=== PATIENT | female | born 1995 | race Asian ===

== ENCOUNTER 2017-04-01 13:27 | Emergency (ER) | payer MEDICAID ==
[~2017-04-01] VITALS: Ht 167.6 cm; Wt 110.9 kg
[~2017-04-01 13:27] MED LIST: BUPR-86 PO; CITA20TA5 PO; CITA40TA12 PO; HYDR25TA11 PO; LEVE500T53 PO; PHEN100C PO; QUET25TA5 PO; TRAZ100T15 PO; [UNRECOGNIZED DRUG - OTHER] PO
[2017-04-01] MEDS ORDERED: KETOROLAC 30 MG/1 ML IVPush ONE (14:30)
[2017-04-01] MEDS ORDERED: FILTER 0.22 MICRON IV ONE (14:30)
[2017-04-01] MEDS ORDERED: PHENYTOIN SODIUM 1,000 MG in SODIUM CHLORIDE 0.9% 80 ML IV ONE (14:30)
[2017-04-01] MEDS ORDERED: DIPHENHYDRAMINE 50 MG/ML, 1ML IVPush ONE (14:30)
[2017-04-01] MEDS ORDERED: LEVETIRACETAM 500 MG TABLET PO ONE (14:30)
[2017-04-01] MEDS ORDERED: METOCLOPRAMIDE 5 MG/ML, 2ML IVPush ONE (14:30)
[2017-04-01] MEDS ORDERED: SODIUM CHLORIDE 0.9% 1,000ML IVBOLUS ONE (14:30)
[2017-04-01] MEDS ORDERED: SODIUM CHLORIDE FLUSH 10ML SYR IVF ONE ×2 (14:30)
[2017-04-01] MEDS ORDERED: METOCLOPRAMIDE 5 MG/ML, 2ML ONE (14:46)
[2017-04-01] MEDS ORDERED: DIPHENHYDRAMINE 50 MG/ML, 1ML ONE (14:46)
[2017-04-01] MEDS ORDERED: KETOROLAC 30 MG/1 ML ONE (14:46)
[2017-04-01 14:57] LABS: ASPARTATE AMINO TRANSFERASE 21 U/L (15-37); BLOOD UREA NITROGEN 12 mg/dL (7-18)
[2017-04-01 17:33] VITALS: BP 112/67
== END 2017-04-01 17:40 | disposition home or self-care (01) ==
LOC: ED 17:30
DX: R56.9 Unspecified convulsions (principal); Z72.89 Other problems related to lifestyle
CPT/HCPCS: 36415; 80053; 80185; 85025; 96365; 96375; 99284; J1165; J1200; J1885; J2765; J7030

== ENCOUNTER 2017-05-19 05:12 | Emergency (ER) | payer MEDICAID ==
[~2017-05-19] VITALS: Ht 167.6 cm; Wt 109.2 kg
[2017-05-19 05:13] VITALS: BP 141/88
== END 2017-05-19 06:04 | disposition home or self-care (01) ==
LOC: ED 05:38
DX: Z76.0 Encounter for issue of repeat prescription (principal)
CPT/HCPCS: 99283

== ENCOUNTER 2018-03-03 03:12 | Emergency (ER) | payer MEDICAID ==
[~2018-03-03] VITALS: Ht 177.8 cm; Wt 72.0 kg
[~2018-03-03 03:12] MED LIST changes: +LEVE750T37 PO
[2018-03-03] MEDS ORDERED: SODIUM CHLORIDE 0.9% 1,000ML IVBOLUS ONE (03:30)
[2018-03-03 03:40] LABS: BASOPHILS # (AUTO) 0.04 x10^3/uL (0-0.1); BASOPHILS % (AUTO) 1 % (0-1); EOSINOPHILS # (AUTO) 0.15 x10^3/uL (0-0.4); EOSINOPHILS % (AUTO) 2 % (1-7); LYMPHOCYTES # (AUTO) 2.43 x10^3/uL (1-3.4); LYMPHOCYTES % (AUTO) 37 % (22-44); MD NO; MEAN CORPUSCULAR HEMOGLOBIN 28.5 pg (27.0-34.8); MEAN CORPUSCULAR VOLUME 86.3 fL (80-100); MEAN PLATELET VOLUME 6.2 fL (7.4-10.4); MONOCYTES # (AUTO) 0.41 x10^3/uL (0.2-0.8); MONOCYTES % (AUTO) 6 % (2-9); NEUTROPHILS # (AUTO) 3.54 x10^3/uL (1.8-6.8); NEUTROPHILS % (AUTO) 54 % (42-75); PLATELET COUNT 313 x10^3/uL (130-400); RED BLOOD COUNT 4.63 x10^6/uL (3.82-5.3); RED CELL DISTRIBUTION WIDTH 13.5 % (9.6-15.2)
[2018-03-03 03:53] LABS: ALANINE AMINOTRANSFERASE 32 U/L (12-78); ALBUMIN 3.7 g/dL (3.4-5.0); ANION GAP 6 mmol/L (5-15); CALCIUM 8.9 mg/dL (8.5-10.1); CHLORIDE 108 mmol/L (98-107); CREATININE 1.02 mg/dL (0.55-1.02); SALICYLATE LEVEL < 1.7 mg/dL (2.8-20.0)
[2018-03-03] MEDS ORDERED: LORazepam 2 MG/ML, 1ML ONE (03:53)
[2018-03-03 03:58] LABS: ALKALINE PHOSPHATASE 67 U/L (45-117); BILIRUBIN,TOTAL 0.3 mg/dL (0.2-1.0); TOTAL PROTEIN 7.8 g/dL (6.4-8.2)
[2018-03-03 04:00] LABS: ACETAMINOPHEN < 2 mcg/mL (10-30)
[2018-03-03] MEDS ORDERED: KLON (04:04)
[2018-03-03] MEDS ORDERED: KLONOPIN (04:06)
[2018-03-03] MEDS ORDERED: NALOXONE 0.4 MG/ML, 1ML ONE (04:49)
[2018-03-03] MEDS ORDERED: NALOXONE 0.4 MG/ML, 1ML IVPush ONE (05:00)
[2018-03-03] MEDS ORDERED: LEVETIRACETAM 1,000 MG in SODIUM CHLORIDE 0.9% 100 ML IV ONE (05:30)
[2018-03-03 09:03] VITALS: BP 121/81
== END 2018-03-03 09:07 | disposition home or self-care (01) ==
LOC: ED 03:56
DX: G40.909 Epilepsy, unspecified, not intractable, without status epilepticus (principal); F11.10 Opioid abuse, uncomplicated; F19.10 Other psychoactive substance abuse, uncomplicated; Z72.9 Problem related to lifestyle, unspecified
CPT/HCPCS: 36415; 80053; 80307; 80329; 84703; 85025; 93005; 96365; 96375; 99285; J1953; J2310; J7030; G0480

== ENCOUNTER 2018-12-29 17:28 | Inpatient (IN) | payer MEDICAID, OTHER ==
[~2018-12-29] VITALS: Ht 167.6 cm; Wt 100.3 kg
[~2018-12-29 17:28] MED LIST changes: -CITA20TA5 PO; +CITA20TA6 PO; +KLON; +KLONOPIN; +TRAZ-137 PO; -TRAZ100T15 PO
--- NOTE | 2018-12-29 17:52 | NUR ---
SEIZURE PADS IN PLACE
--- NOTE | 2018-12-29 17:53 | NUR ---
PT TENSING UP, LYING ON SIDE. GIVEN ATIVAN. MD AT BEDSIDE. PT RESPONDING WHEN QUESTIONED BY MD. 98 PERCENT PULSE OX
[2018-12-29] MEDS ORDERED: SODIUM CHLORIDE FLUSH 10ML SYR IVF ONE (18:00)
[2018-12-29] MEDS ORDERED: LORazepam 2 MG/ML, 1ML IVPush ONE (18:00)
[2018-12-29 18:18] LABS: BASOPHILS # (AUTO) 0.01 x10^3/uL (0-0.1); BASOPHILS % (AUTO) 0 % (0-1); EOSINOPHILS # (AUTO) 0.02 x10^3/uL (0-0.4); EOSINOPHILS % (AUTO) 0 % (1-7); LYMPHOCYTES # (AUTO) 1.03 x10^3/uL (1-3.4); LYMPHOCYTES % (AUTO) 22 % (22-44); MD NO; MEAN CORPUSCULAR HEMOGLOBIN 30.1 pg (27.0-34.8); MEAN CORPUSCULAR HGB CONC 33.3 g/dL (32.4-35.8); MEAN CORPUSCULAR VOLUME 90.2 fL (80-100); MEAN PLATELET VOLUME 6.5 fL (7.4-10.4); MONOCYTES # (AUTO) 0.38 x10^3/uL (0.2-0.8); MONOCYTES % (AUTO) 8 % (2-9); NEUTROPHILS # (AUTO) 3.21 x10^3/uL (1.8-6.8); NEUTROPHILS % (AUTO) 69 % (42-75); PLATELET COUNT 226 x10^3/uL (130-400); RED BLOOD COUNT 4.08 x10^6/uL (3.82-5.3); RED CELL DISTRIBUTION WIDTH 14.3 % (9.6-15.2)
--- NOTE | 2018-12-29 18:25 | NUR ---
PT SLEEPING. CONTINUE TO MONITOR
[2018-12-29 18:28] LABS: ALANINE AMINOTRANSFERASE 80 U/L (12-78); ALBUMIN 3.5 g/dL (3.4-5.0); ANION GAP 4 mmol/L (5-15); CALCIUM 7.8 mg/dL (8.5-10.1); CHLORIDE 111 mmol/L (98-107); CREATININE 0.86 mg/dL (0.55-1.02)
[2018-12-29 18:33] LABS: ALKALINE PHOSPHATASE 92 U/L (45-117); BILIRUBIN,TOTAL 0.1 mg/dL (0.2-1.0); TOTAL PROTEIN 6.6 g/dL (6.4-8.2)
--- NOTE | 2018-12-29 20:23 | NUR ---
PT SLEEPING. AWOKE HER TO TAKE HER PANTS OFF AND GET HER ON BEDPAN. URINE SAMPLE OBTAINED. PT THEN STATED SHE THOUGHT SHE WAS GOING TO HAVE A SEIZURE. PT THEN HAD WHAT MAY HAVE BEEN A PSEUDO SEIZURE LASTING 20 SECONDS AND OXYGEN SATURATION NORMAL DURING THIS ACTIVITY. PT THEN BACK TO NORMAL.
[2018-12-29 20:46] LABS: AMPHETAMINE SCREEN, URINE Negative (Negative); BARBITURATE SCREEN, URINE Negative (Negative); BENZODIAZEPINE SCREEN, URINE Positive (Negative); CANNABINOID SCREEN, URINE Negative (Negative); COCAINE SCREEN, URINE Negative (Negative); METHADONE SCREEN, URINE Negative (Negative); OPIATE SCREEN, URINE Negative (Negative)
--- NOTE | 2018-12-29 20:58 | NUR ---
REPORT TO SHAHRIAR
[2018-12-29] MEDS ORDERED: SODIUM CHLORIDE FLUSH 10ML SYR IVF PRN (21:00)
[2018-12-29] MEDS ORDERED: PHEN100C PO ×2 (21:04)
[2018-12-29] MEDS ORDERED: CARB200T PO (21:04)
[2018-12-29] MEDS ORDERED: LEVE500T53 PO (21:04)
--- NOTE | 2018-12-29 21:08 | NUR ---
REPORT FROM TYRON. PT RESTING IN ROOM. BED ASSIGNED. AWAITING REPORT.
[2018-12-29 22:10] VITALS: BP 106/70
[2018-12-29] MEDS ORDERED: TRAZ50TA66 PO (22:56)
[2018-12-29] MEDS ORDERED: MECO0.5P PO (22:56)
[2018-12-29] MEDS ORDERED: CHOL2000 PO (22:56)
[2018-12-29] MEDS ORDERED: CITA20TA6 PO (22:56)
[2018-12-29] MEDS ORDERED: ACETAMINOPHEN 325 MG TABLET PO PRN (23:30)
[2018-12-29] MEDS ORDERED: LORazepam 2 MG/ML, 1ML ONE (23:30)
[2018-12-29] MEDS ORDERED: hydrALAzine 20 MG/ML, 1ML IVPush PRN (23:30)
[2018-12-29] MEDS ORDERED: POLYETHYLENE GLYCOL 17 GM PACKET PO PRN (23:30)
[2018-12-29] MEDS: LEVETIRACETAM 1,000 MG in SODIUM CHLORIDE 0.9% 100 ML IV SCH (23:57)
[2018-12-30] MEDS ORDERED: LORazepam 2 MG/ML, 1ML IVPush ONE
[2018-12-30 00:06] VITALS: BP 110/55
[2018-12-30 00:15] VITALS: BP 104/67
[2018-12-30] MEDS: LORazepam 2 MG/ML, 1ML IVPush PRN ×7 (02:05→20:56)
[2018-12-30 06:09] LABS: BASOPHILS # (AUTO) 0.02 x10^3/uL (0-0.1); BASOPHILS % (AUTO) 0 % (0-1); EOSINOPHILS # (AUTO) 0.02 x10^3/uL (0-0.4); EOSINOPHILS % (AUTO) 1 % (1-7); LYMPHOCYTES # (AUTO) 1.48 x10^3/uL (1-3.4); LYMPHOCYTES % (AUTO) 36 % (22-44); MD NO; MEAN CORPUSCULAR HEMOGLOBIN 30.3 pg (27.0-34.8); MEAN CORPUSCULAR HGB CONC 33.9 g/dL (32.4-35.8); MEAN CORPUSCULAR VOLUME 89.4 fL (80-100); MEAN PLATELET VOLUME 6.1 fL (7.4-10.4); MONOCYTES # (AUTO) 0.33 x10^3/uL (0.2-0.8); MONOCYTES % (AUTO) 8 % (2-9); NEUTROPHILS # (AUTO) 2.27 x10^3/uL (1.8-6.8); NEUTROPHILS % (AUTO) 55 % (42-75); PLATELET COUNT 211 x10^3/uL (130-400); RED BLOOD COUNT 3.82 x10^6/uL (3.82-5.3); RED CELL DISTRIBUTION WIDTH 14.7 % (9.6-15.2)
[2018-12-30 06:18] LABS: ANION GAP 4 mmol/L (5-15); CALCIUM 7.8 mg/dL (8.5-10.1); CHLORIDE 112 mmol/L (98-107)
[2018-12-30 06:22] LABS: ALANINE AMINOTRANSFERASE 69 U/L (12-78); ALKALINE PHOSPHATASE 81 U/L (45-117); BILIRUBIN,TOTAL 0.2 mg/dL (0.2-1.0); CREATININE 0.59 mg/dL (0.55-1.02); TOTAL PROTEIN 6.1 g/dL (6.4-8.2)
[2018-12-30] MEDS ORDERED: ACETAMINOPHEN 325 MG TABLET PO PRN (08:00)
[2018-12-30 08:30] VITALS: BP 97/64
[2018-12-30] MEDS: CITALOPRAM 20 MG TABLET PO SCH (09:44)
[2018-12-30] MEDS: PHENYTOIN 100 MG CAPSULE PO SCH (09:44)
[2018-12-30 10:05] VITALS: BP 107/69
[2018-12-30] MEDS: LEVETIRACETAM 1,000 MG in SODIUM CHLORIDE 0.9% 100 ML IV SCH ×2 (12:12→23:30)
[2018-12-30 12:39] VITALS: BP 113/74
[2018-12-30 20:40] VITALS: BP 102/67
[2018-12-30] MEDS ORDERED: CARBAMAZEPINE 100 MG TAB.CHEW PO SCH (21:00)
[2018-12-30] MEDS ORDERED: PHENYTOIN 100 MG CAPSULE PO SCH (21:00)
[2018-12-30] MEDS ORDERED: TRAZODONE 50MG TABLET PO SCH (21:00)
[2018-12-31 03:54] VITALS: BP 99/63
[2018-12-31] MEDS: LORazepam 2 MG/ML, 1ML IVPush PRN (05:32)
[2018-12-31 07:18] VITALS: BP 97/65
[2018-12-31] MEDS ORDERED: SODIUM CHLORIDE 0.9% 1,000 ML IV SCH (08:00)
[2018-12-31] MEDS: LEVETIRACETAM 1,000 MG in SODIUM CHLORIDE 0.9% 100 ML IV SCH (09:27)
[2018-12-31] MEDS: PHENYTOIN 100 MG CAPSULE PO SCH (09:29)
[2018-12-31] MEDS: CITALOPRAM 20 MG TABLET PO SCH (09:30)
[2018-12-31] MEDS ORDERED: CARBAMAZEPINE 200 MG TABLET PO SCH (10:00)
[2018-12-31] MEDS ORDERED: LEVETIRACETAM 500 MG TABLET PO SCH (10:00)
[2018-12-31] MEDS ORDERED: CARB200T PO (11:38)
== END 2018-12-31 14:13 | disposition home or self-care (01) | DRG 101 ==
LOC: EDBD 17:28 → ED 17:45 → 4WST 20:54
PROVIDERS: ADMIT Family Medicine; ATTEND Family Medicine
DX: G40.909 Epilepsy, unspecified, not intractable, without status epilepticus (principal); Z79.899 Other long term (current) drug therapy; G47.00 Insomnia, unspecified; E66.9 Obesity, unspecified; Z68.35 Body mass index [BMI] 35.0-35.9, adult; Z88.0 Allergy status to penicillin; Z88.2 Allergy status to sulfonamides; Z88.8 Allergy status to other drugs, medicaments and biological substances
CPT/HCPCS: 36415; 70450; 80053; 80156; 80177; 80185; 80307; 82550; 83735; 84703; 85025; 93005; 95816; 95819; 96374; 99285; G0378; J1953; J2060; J7030

== ENCOUNTER 2019-01-12 10:50 | Inpatient (IN) | payer MEDICAID, OTHER ==
[~2019-01-12] VITALS: Ht 170.2 cm; Wt 94.9 kg
[~2019-01-12 10:50] MED LIST changes: +CARB200T PO; +CHOL2000 PO; +MECO0.5P PO; +TRAZ50TA66 PO
[2019-01-12] MEDS ORDERED: SODIUM CHLORIDE FLUSH 10ML SYR IVF ONE (11:00)
--- NOTE | 2019-01-12 11:17 | NUR ---
pt bib remsa for 45 minute seizure while at the correction. pt escorted with law enforcement.. per remsa pt was never postictal. pt with hx: pseudoseizures. pt a&ox4. pt placed in room and placed on bp and cont. pulse oximeter. assessment completed. call light in rech. seizure pads placed on bed. law enforcement at bedside.
[2019-01-12 11:35] LABS: BASOPHILS # (AUTO) 0.02 x10^3/uL (0-0.1); BASOPHILS % (AUTO) 0 % (0-1); EOSINOPHILS # (AUTO) 0.05 x10^3/uL (0-0.4); EOSINOPHILS % (AUTO) 1 % (1-7); LYMPHOCYTES # (AUTO) 0.91 x10^3/uL (1-3.4); LYMPHOCYTES % (AUTO) 15 % (22-44); MD NO; MEAN CORPUSCULAR HEMOGLOBIN 30.8 pg (27.0-34.8); MEAN CORPUSCULAR HGB CONC 33.8 g/dL (32.4-35.8); MEAN PLATELET VOLUME 6.5 fL (7.4-10.4); MONOCYTES # (AUTO) 0.33 x10^3/uL (0.2-0.8); MONOCYTES % (AUTO) 6 % (2-9); NEUTROPHILS # (AUTO) 4.61 x10^3/uL (1.8-6.8); NEUTROPHILS % (AUTO) 78 % (42-75); PLATELET COUNT 243 x10^3/uL (130-400); RED BLOOD COUNT 4.16 x10^6/uL (3.82-5.3); RED CELL DISTRIBUTION WIDTH 13.9 % (9.6-15.2)
[2019-01-12 11:45] LABS: ALBUMIN 3.9 g/dL (3.4-5.0); ANION GAP 8 mmol/L (5-15); CALCIUM 8.2 mg/dL (8.5-10.1); CHLORIDE 108 mmol/L (98-107)
[2019-01-12 11:52] LABS: CREATININE 0.89 mg/dL (0.55-1.02)
--- NOTE | 2019-01-12 11:57 | NUR ---
PT RESTING IN BED AT THIS TIME. NO FURTHER SEIZURE ACTIVITY NOTED. LAW ENFORCEMENT AT BEDSIDE
--- NOTE | 2019-01-12 13:15 | NUR ---
report given to chris. pt then will be transferred to floor.
[2019-01-12 13:42] VITALS: BP 102/70
[2019-01-12 13:43] VITALS: BP 102/70
[2019-01-12] MEDS ORDERED: ONDANSETRON 2MG/ML, 2ML IVPush PRN (16:00)
[2019-01-12] MEDS ORDERED: ACETAMINOPHEN 325 MG TABLET PO PRN (16:00)
[2019-01-12] MEDS ORDERED: ONDANSETRON ODT 4 MG PO PRN (16:00)
[2019-01-12] MEDS: LEVETIRACETAM 500 MG TABLET PO SCH ×2 (16:19→22:14)
[2019-01-12] MEDS: LORazepam 2 MG/ML, 1ML IV PRN ×2 (19:20→21:38)
[2019-01-12] MEDS ORDERED: hydrOXYzine 50 MG/ML IM PRN (19:30)
[2019-01-12 19:34] VITALS: BP 97/61
[2019-01-12] MEDS ORDERED: CARBAMAZEPINE 100 MG TAB.CHEW PO SCH (21:00)
[2019-01-12 21:51] VITALS: BP 114/73
[2019-01-13 01:20] VITALS: BP 98/65
[2019-01-13 04:58] LABS: BASOPHILS # (AUTO) 0.03 x10^3/uL (0-0.1); BASOPHILS % (AUTO) 1 % (0-1); EOSINOPHILS # (AUTO) 0.04 x10^3/uL (0-0.4); EOSINOPHILS % (AUTO) 1 % (1-7); LYMPHOCYTES # (AUTO) 1.86 x10^3/uL (1-3.4); LYMPHOCYTES % (AUTO) 37 % (22-44); MD NO; MEAN CORPUSCULAR HEMOGLOBIN 30.8 pg (27.0-34.8); MEAN CORPUSCULAR HGB CONC 33.8 g/dL (32.4-35.8); MEAN CORPUSCULAR VOLUME 91.2 fL (80-100); MEAN PLATELET VOLUME 6.4 fL (7.4-10.4); MONOCYTES # (AUTO) 0.49 x10^3/uL (0.2-0.8); MONOCYTES % (AUTO) 10 % (2-9); NEUTROPHILS # (AUTO) 2.56 x10^3/uL (1.8-6.8); NEUTROPHILS % (AUTO) 51 % (42-75); PLATELET COUNT 233 x10^3/uL (130-400); RED BLOOD COUNT 3.93 x10^6/uL (3.82-5.3); RED CELL DISTRIBUTION WIDTH 14.2 % (9.6-15.2)
[2019-01-13 05:08] LABS: ANION GAP 5 mmol/L (5-15); CALCIUM 7.9 mg/dL (8.5-10.1); CHLORIDE 110 mmol/L (98-107); CREATININE 0.63 mg/dL (0.55-1.02)
[2019-01-13] MEDS ORDERED: CARB100T4 PO (07:45)
[2019-01-13 08:04] VITALS: BP 90/62
[2019-01-13] MEDS ORDERED: CHOLECALCIFEROL 1,000 UNIT TABLET PO SCH (09:00)
[2019-01-13] MEDS ORDERED: CARBAMAZEPINE 200 MG TABLET PO SCH (09:00)
[2019-01-13] MEDS: LEVETIRACETAM 500 MG TABLET PO SCH (09:44)
[2019-01-13 09:56] VITALS: BP 106/68
== END 2019-01-13 10:51 | disposition home or self-care (01) | DRG 101 ==
LOC: ED 11:43 → INTOOBSV 12:37 → 3NE 12:37 → OBSVTOIN 01-13 09:00
PROVIDERS: ADMIT Internal Medicine; ATTEND Internal Medicine
DX: G40.901 Epilepsy, unspecified, not intractable, with status epilepticus (principal); R00.0 Tachycardia, unspecified; E66.9 Obesity, unspecified; Z68.32 Body mass index [BMI] 32.0-32.9, adult; Z76.5 Malingerer [conscious simulation]; Z90.49 Acquired absence of other specified parts of digestive tract; Z88.0 Allergy status to penicillin; Z88.2 Allergy status to sulfonamides; Z88.8 Allergy status to other drugs, medicaments and biological substances
CPT/HCPCS: 36415; 80048; 80156; 80185; 82040; 83735; 84100; 84703; 85025; G0378; J3410; J2060

== ENCOUNTER 2019-01-25 19:56 | Emergency (ER) | payer MEDICAID, OTHER ==
[~2019-01-25] VITALS: Ht 170.2 cm; Wt 95.0 kg
[~2019-01-25 19:56] MED LIST changes: +CARB100T4 PO
[2019-01-25] MEDS ORDERED: ONDANSETRON 2MG/ML, 2ML ONE (20:08)
[2019-01-25 20:21] LABS: BASOPHILS # (AUTO) 0.03 x10^3/uL (0-0.1); BASOPHILS % (AUTO) 1 % (0-1); EOSINOPHILS # (AUTO) 0.07 x10^3/uL (0-0.4); EOSINOPHILS % (AUTO) 2 % (1-7); LYMPHOCYTES % (AUTO) 33 % (22-44); MD NO; MEAN CORPUSCULAR HEMOGLOBIN 31.1 pg (27.0-34.8); MEAN CORPUSCULAR HGB CONC 34.2 g/dL (32.4-35.8); MEAN CORPUSCULAR VOLUME 90.9 fL (80-100); MEAN PLATELET VOLUME 6.7 fL (7.4-10.4); MONOCYTES # (AUTO) 0.31 x10^3/uL (0.2-0.8); MONOCYTES % (AUTO) 7 % (2-9); NEUTROPHILS # (AUTO) 2.69 x10^3/uL (1.8-6.8); NEUTROPHILS % (AUTO) 59 % (42-75); PLATELET COUNT 237 x10^3/uL (130-400); RED BLOOD COUNT 3.68 x10^6/uL (3.82-5.3); RED CELL DISTRIBUTION WIDTH 14.1 % (9.6-15.2)
[2019-01-25 20:29] LABS: ALBUMIN 3.2 g/dL (3.4-5.0); ANION GAP 5 mmol/L (5-15); CHLORIDE 111 mmol/L (98-107); CREATININE 0.75 mg/dL (0.55-1.02)
[2019-01-25] MEDS ORDERED: ONDANSETRON 2MG/ML, 2ML IVPush ONE (20:30)
[2019-01-25] MEDS ORDERED: SODIUM CHLORIDE FLUSH 10ML SYR IVF ONE (20:30)
--- NOTE | 2019-01-25 20:31 | NUR ---
REPORT RECEIVED FROM JOHNY RIOJAS, SEIZURE PRECAUTIONS IN PLACE. PT IS A&O, RESPS EVEN AND UNLABORED, ALL MONITORS IN PLACE. AWAITING LAB RESULTS AND DISPO.
--- NOTE | 2019-01-25 21:09 | NUR ---
PT RESTING ON GURNEY, PT IS A&OX4, RESPS EVEN AND UNLABORED. NO SEIZURE ACTIVITY NOTED DURING THIS VISIT. 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
[2019-01-25] MEDS ORDERED: LORazepam 2 MG/ML, 1ML ONE (21:27)
--- NOTE | 2019-01-25 21:36 | NUR ---
pt had seizure activity, generalized shaking movements and hyperventilating x 1 approx min. ISAI Underwood was called to bedside and witnessed a portion of this activity, ISAI Underwood suspicious of pseudoseizure. pt now resting on gurney, resps even and unlabored. vss. EDOK Tierra notified. awaiting further orders at this time.
--- NOTE | 2019-01-25 21:53 | NUR ---
pt is now a&ox4, no oral trauma noted. resps even and unlabored. vss. no s/sx aspiration s/p seizure activity.
[2019-01-25] MEDS ORDERED: LEVETIRACETAM 1,000 MG in SODIUM CHLORIDE 0.9% 100 ML IV ONE (22:00)
[2019-01-25] MEDS ORDERED: METOCLOPRAMIDE 5 MG/ML, 2ML ONE (22:17)
--- NOTE | 2019-01-25 22:19 | NUR ---
pt had emesis x 1. EDMD Tierra notified. reglan ordered and administered per emar.
[2019-01-25] MEDS ORDERED: METOCLOPRAMIDE 5 MG/ML, 2ML IVPush ONE (22:30)
[2019-01-25 23:02] VITALS: BP 100/48
--- NOTE | 2019-01-25 23:03 | NUR ---
no further seizure activity noted. pt is a&ox4, resps even and unlabored, no n/v. TYE Mayorga instructed RN to dc pt. pt given dc instructions, educated not to drive tonight d/t med given sea captain. piv dc'd with tip intact. pt states is driving her home. pt amb to dc desk with steady gait, nadn at dc.
== END 2019-01-25 23:07 | disposition home or self-care (01) ==
LOC: ED 23:05
DX: G40.401 Other generalized epilepsy and epileptic syndromes, not intractable, with status epilepticus (principal); Z72.9 Problem related to lifestyle, unspecified; Z90.49 Acquired absence of other specified parts of digestive tract
CPT/HCPCS: 36415; 80048; 82040; 85025; 96365; 96375; 99283; J1953; J2405; J2765

== ENCOUNTER 2019-02-05 15:51 | Emergency (ER) | payer MEDICAID ==
[~2019-02-05] VITALS: Ht 170.2 cm; Wt 105.5 kg
[2019-02-05 16:41] LABS: BASOPHILS # (AUTO) 0.02 x10^3/uL (0-0.1); BASOPHILS % (AUTO) 1 % (0-1); EOSINOPHILS # (AUTO) 0.06 x10^3/uL (0-0.4); EOSINOPHILS % (AUTO) 2 % (1-7); LYMPHOCYTES # (AUTO) 1.46 x10^3/uL (1-3.4); LYMPHOCYTES % (AUTO) 43 % (22-44); MD NO; MEAN CORPUSCULAR HEMOGLOBIN 31.1 pg (27.0-34.8); MEAN CORPUSCULAR HGB CONC 33.3 g/dL (32.4-35.8); MEAN CORPUSCULAR VOLUME 93.4 fL (80-100); MEAN PLATELET VOLUME 6.3 fL (7.4-10.4); MONOCYTES # (AUTO) 0.24 x10^3/uL (0.2-0.8); MONOCYTES % (AUTO) 7 % (2-9); NEUTROPHILS # (AUTO) 1.64 x10^3/uL (1.8-6.8); NEUTROPHILS % (AUTO) 48 % (42-75); PLATELET COUNT 266 x10^3/uL (130-400); RED BLOOD COUNT 3.61 x10^6/uL (3.82-5.3); RED CELL DISTRIBUTION WIDTH 14.2 % (9.6-15.2)
[2019-02-05 16:51] LABS: ALANINE AMINOTRANSFERASE 131 U/L (12-78); ALBUMIN 3.3 g/dL (3.4-5.0); ANION GAP 6 mmol/L (5-15); CALCIUM 7.7 mg/dL (8.5-10.1); CHLORIDE 110 mmol/L (98-107); CREATININE 0.78 mg/dL (0.55-1.02)
[2019-02-05 16:54] LABS: ALKALINE PHOSPHATASE 79 U/L (45-117); BILIRUBIN,TOTAL 0.1 mg/dL (0.2-1.0); TOTAL PROTEIN 6.6 g/dL (6.4-8.2)
--- NOTE | 2019-02-05 17:38 | NUR ---
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 PT STATES, "I LIVE AT [facility], I AM EITHER BEING OVER OR INCORRECTLY MEDICATED ON MY SEROQUIL. I AM DIZZY AND NAUSEAS." NADN. BOTH BEDRAILS UP FOR SAFETY MEASURES. CALL LIGHT WITHIN REACH. NO NEEDS EXPRESSED AT THIS TIME. PT HAS RAPID RESPIRATIONS AT 29-31 AND IS TACYCARDIC AT 95 BPM IN A NORMAL SINUS RHYTHM.
--- NOTE | 2019-02-05 17:43 | NUR ---
PT AWARE OF NEED OF UA.
--- NOTE | 2019-02-05 19:10 | NUR ---
REPORT RECEIVED FROM TRICIA MCCLAIN.
--- NOTE | 2019-02-05 19:17 | NUR ---
PT AWARE OF NEED OF UA. PT STATES "I'M NOT ABLE TO PEE NOW." URINE CUP AT BEDSIDE.
--- NOTE | 2019-02-05 20:15 | NUR ---
Note jair in EDM - 02/05/19 at 2022 by TK PT AMB TO BR AND BACK TO ROOM. EDMD CANCELED UA. AWAITING DC.
--- NOTE | 2019-02-05 20:15 | NUR ---
PT WHEELED TO BR AND BACK TO ROOM. EDMD CANCELED UA. AWAITING DC.
[2019-02-05 20:22] VITALS: BP 100/44
--- NOTE | 2019-02-05 20:23 | NUR ---
PT GIVEN DC INSTRUCTIONS. PT'S AOX4. RESPS EVEN AND UNLABORED. PT AMB TO DC WITH STEADY GAIT. NO ACUTE DISTRESS AT DC.
== END 2019-02-05 20:24 | disposition home or self-care (01) ==
LOC: ED 18:31
DX: E88.09 Other disorders of plasma-protein metabolism, not elsewhere classified (principal); R41.82 Altered mental status, unspecified; E83.51 Hypocalcemia; G40.909 Epilepsy, unspecified, not intractable, without status epilepticus
CPT/HCPCS: 36415; 80053; 83690; 85025; 93005; 99284

== ENCOUNTER 2019-02-19 14:47 | Emergency (ER) | payer MEDICAID, OTHER ==
[~2019-02-19] VITALS: Ht 170.2 cm; Wt 100.0 kg
[2019-02-19 15:36] LABS: BASOPHILS # (AUTO) 0.03 x10^3/uL (0-0.1); BASOPHILS % (AUTO) 1 % (0-1); EOSINOPHILS # (AUTO) 0.02 x10^3/uL (0-0.4); EOSINOPHILS % (AUTO) 1 % (1-7); LYMPHOCYTES % (AUTO) 24 % (22-44); MD NO; MEAN CORPUSCULAR HEMOGLOBIN 30.5 pg (27.0-34.8); MEAN CORPUSCULAR HGB CONC 32.7 g/dL (32.4-35.8); MEAN CORPUSCULAR VOLUME 93.2 fL (80-100); MEAN PLATELET VOLUME 6.8 fL (7.4-10.4); MONOCYTES # (AUTO) 0.26 x10^3/uL (0.2-0.8); MONOCYTES % (AUTO) 6 % (2-9); NEUTROPHILS # (AUTO) 3.17 x10^3/uL (1.8-6.8); NEUTROPHILS % (AUTO) 69 % (42-75); PLATELET COUNT 292 x10^3/uL (130-400); RED BLOOD COUNT 4.19 x10^6/uL (3.82-5.3); RED CELL DISTRIBUTION WIDTH 12.4 % (9.6-15.2)
[2019-02-19 15:47] LABS: ANION GAP 6 mmol/L (5-15); CALCIUM 8.6 mg/dL (8.5-10.1); CHLORIDE 108 mmol/L (98-107)
[2019-02-19 15:53] LABS: ALANINE AMINOTRANSFERASE 51 U/L (12-78); ALKALINE PHOSPHATASE 82 U/L (45-117); BILIRUBIN,TOTAL 0.2 mg/dL (0.2-1.0); CREATININE 0.86 mg/dL (0.55-1.02); TOTAL PROTEIN 7.7 g/dL (6.4-8.2)
--- NOTE | 2019-02-19 15:57 | NUR ---
PT SLEEPING IN GURNEY ON MONITOR WITH GUARDS AT BEDSIDE, EQUAL CHEST RISE AND FALL. AWAITING LAB RESULTS
[2019-02-19 16:29] VITALS: BP 105/66
== END 2019-02-19 16:32 | disposition home or self-care (01) ==
LOC: ED 15:23
DX: G40.319 Generalized idiopathic epilepsy and epileptic syndromes, intractable, without status epilepticus (principal); F17.200 Nicotine dependence, unspecified, uncomplicated
CPT/HCPCS: 36415; 80053; 80156; 84703; 85025; 93005; 99284